=== PATIENT | female | born 1980 | race Caucasian/White ===

== ENCOUNTER 2024-07-05 01:26 | Emergency (ER) | payer BC ==
[~2024-07-05] VITALS: Ht 162.6 cm; Wt 104.3 kg
[2024-07-05 01:45] VITALS: BP_SYST 142; PULSE 95; RESP 16; TEMP 97.1; O2SAT 98
[2024-07-05 02:38] LABS: BASOPHILS % (AUTO) 0.4 % (0.0-2.0); EOSINOPHILS # (AUTO) 0.3 K/uL (0.0-0.4); EOSINOPHILS % (AUTO) 3.2 % (0.0-4.0); HEMATOCRIT 39.6 % (36-48); HEMOGLOBIN 13.2 g/dL (12.0-16.0); LYMPHOCYTES # (AUTO) 3.4 K/uL (1.0-5.5); LYMPHOCYTES % (AUTO) 34.3 % (20.5-51.5); MEAN CORPUSCULAR HEMOGLOBIN 27 pg (27-31); MEAN CORPUSCULAR HGB CONC 33 % (32-36); MEAN CORPUSCULAR VOLUME 80 fL (79.0-98.0); MONOCYTES # (AUTO) 0.8 K/uL (0.0-1.0); MONOCYTES % (AUTO) 8.2 % (1.7-9.3); NEUTROPHILS # (AUTO) 5.4 K/uL (1.8-7.7); NEUTROPHILS % (AUTO) 53.9 % (40.0-70.0); PLATELET COUNT (AUTO) 309 K/uL (130-430); RED BLOOD CELL COUNT(AUTO) 4.94 MIL/uL (4.2-6.2); RED CELL DISTRIBUTION WIDTH 13.5 % (9.0-15.0)
[2024-07-05 02:50] LABS: BILIRUBIN,DIRECT 0.2 mg/dL (0.0-0.3); CALCIUM 8.3 mg/dL (8.4-11.0); CREATININE 0.56 mg/dL (0.55-1.30); POTASSIUM 3.9 mmol/L (3.5-5.1); TOTAL BILIRUBIN 0.8 mg/dL (0.0-1.0); TOTAL PROTEIN, SERUM 6.8 g/dL (6.4-8.3)
[2024-07-05 03:00] LABS: BILIRUBIN,URINE NEGATIVE (NEGATIVE); CLARITY/URINE CLEAR (CLEAR); COLOR,URINE YELLOW (YELLOW); GLUCOSE,URINE NEGATIVE (NEGATIVE); KETONES,URINE NEGATIVE (NEGATIVE); LEUKOCYTE ESTERASE ,URINE NEGATIVE (NEGATIVE); NITRITE, URINE NEGATIVE (NEGATIVE); PROTEIN URINE NEGATIVE (NEGATIVE); UROBILINOGEN,URINE 0.2 (0.2-1.0)
[2024-07-05 03:03] LABS: BLOOD, URINE TRACE (NEGATIVE)
[2024-07-05 03:36] LABS: BACTERIA,URINE RARE /HPF (None Seen); RBC,URINE 0-3 /HPF (0-3); WBC,URINE 0-3 /HPF (0-3)
[2024-07-05] MEDS: MAG-AL HYDROX/SIMETH 30 ML UDC PO ONE (04:13)
[2024-07-05] MEDS ORDERED: FAMOTIDINE 20 MG TABLET ONE (04:22)
[2024-07-05] MEDS: FAMOTIDINE 20 MG TABLET PO ONE (04:23)
[2024-07-05] MEDS ORDERED: OMEP20CA15 PO (05:37)
[2024-07-05] MEDS ORDERED: NAPR-690 PO (05:37)
[2024-07-05 05:52] VITALS: BP_SYST 139; PULSE 82; RESP 18; TEMP 97.2; O2SAT 99
== END 2024-07-05 05:54 | disposition home or self-care (01) ==
LOC: SED 01:26
DX: K80.80 Other cholelithiasis without obstruction (principal); R10.13 Epigastric pain; Z88.6 Allergy status to analgesic agent; Z79.899 Other long term (current) drug therapy; Z79.2 Long term (current) use of antibiotics
CPT/HCPCS: 36415; 76705; 80048; 80076; 81000; 81001; 81015; 81025; 83690; 85025; 99284